=== PATIENT | female | born 1985 | race Caucasian/White ===

== ENCOUNTER 2016-04-14 17:19 | Emergency (ER) | payer MEDICARE ==
[~2016-04-14] VITALS: Ht 154.9 cm; Wt 82.8 kg
[~2016-04-14 17:19] MED LIST: ABILIFY10 MG PO; ABILIFY20 MG PO; CLARITIN10 MG PO; COLACE250 MG PO; EFFEXOR-XR150 MG PO; FLONASE NASAL50 MCG NS; LEVAQUIN500 MG PO; LORATADINE10 M2 PO; LUTERA 0.02 MG-1 TAB PO; MAPAP500 M4 PO; PEPCID20 MG PO; PREDNISONE20 MG PO; PROAIR HFA0.09 MG/Ac IH; PROZAC20 MG PO; Q-TUSSIN100 MG/51 PO; QVAR HFA M40 MCG/ACT INH; QVAR HFA M80 MCG/ACT INH; RANITIDINE 150150 MG PO; RISPERDAL2 MG PO; TERBINAFINE HCL; TRAZODONE HYDR100 MG PO; TRAZODONE50 M2 PO; ZANTAC150 MG PO; ZOFRAN ODT4 MG PO; [UNRECOGNIZED DRUG - OTHER] OP; [UNRECOGNIZED DRUG - OTHER] PO
[2016-04-14 17:29] VITALS: BP 149/96
--- NOTE | 2016-04-14 17:41 | NUR ---
PT BIB CAREGIVER W/C/O LOWER ABDOMINAL PAIN THAT RADIATES INTO LOW BACK AND PRIVATE PAR SINCE THIS AM.PT STATES THAT IT'S MORE PAINFUL WHEN SHE BENDS FORWARD.DENIES N/V/D. HX ASTHMA, DEPRESSION, PSYCHOSIS, ULCERS.PT IS AAOX4.HOB ELEVATED.SAFETY PRECAUTION INSTITUTED,SIDERAILS UP.NEEDS ATTENDED.ALL MONITORS PLACED IN.MD AWARE OF PT'S CONDITION.
--- NOTE | 2016-04-14 17:50 | NUR ---
pt ambulated to the restroom.no acute distress noted at this time.
[2016-04-14] MEDS ORDERED: DAILY VITE1 TA1 PO (17:54)
--- NOTE | 2016-04-14 18:02 | NUR ---
dr vang at bedside.
[2016-04-14] MEDS ORDERED: MORPHINE SULFATE 2 MG/ML SYR IVP ONE (18:05)
--- NOTE | 2016-04-14 18:54 | NUR ---
PT IS SLEEPING AT THIS TIME.CAREGIVER AT BEDSIDE.NO ACUTE DISTRESS NOTED AT THIS TIME.WILL CONTINUE TO MONITOR PT.
--- NOTE | 2016-04-14 19:03 | NUR ---
DR BARNHART AT BEDSIDE
--- NOTE | 2016-04-14 19:16 | NUR ---
Patient discharged with v/s stable. Written and verbal after care instructions given and explained. Patient alert, oriented and verbalized understanding of instructions. Ambulatory with steady gait. All questions addressed prior to discharge. ID band removed. Patient advised to follow up with PMD. Rx of CIPRO given. Patient educated on indication of medication including possible reaction and side effects.ADVISED PT TO INCREASED FLUID INTAKE AND PT AGREED TO IT. Opportunity to ask questions provided and answered.
[2016-04-14 19:17] VITALS: BP 160/78
== END 2016-04-14 19:17 | disposition home or self-care (01) ==
LOC: MED 17:19
DX: N39.0 Urinary tract infection, site not specified (principal); J45.909 Unspecified asthma, uncomplicated; K21.9 Gastro-esophageal reflux disease without esophagitis; F32.9 Major depressive disorder, single episode, unspecified; Z79.899 Other long term (current) drug therapy; Z88.2 Allergy status to sulfonamides; Z91.013 Allergy to seafood
CPT/HCPCS: 36415; 80053; 81001; 81025; 82150; 83690; 84703; 85025; 87086; 96374; 99284; J2270

== ENCOUNTER 2016-07-17 17:00 | Emergency (ER) | payer MEDICARE ==
[~2016-07-17] VITALS: Ht 154.9 cm; Wt 81.2 kg
[~2016-07-17 17:00] MED LIST changes: +DAILY VITE1 TA1 PO
[2016-07-17 17:39] VITALS: BP 126/68
--- NOTE | 2016-07-17 18:57 | NUR ---
PATIENT TO BED 7 AT THIS TIME.
--- NOTE | 2016-07-17 19:41 | NUR ---
30/F PRESENT TO ER C/O ABDOMINAL PAIN RADIATING TO BACK X 1 WK SHARP IN NATURE, PT HAS NAUSEA DENIES V/D, DENIES DYSURIA--LAST BM TODAY. PAIN 9/10 SHARP RADIATING TO BACK. ERMD NOTIFIED OF PATIENT STATUS.
--- NOTE | 2016-07-17 20:20 | NUR ---
Patient being evaluated by physician at bedside.
[2016-07-17 21:31] VITALS: BP 122/68
--- NOTE | 2016-07-17 21:31 | NUR ---
Patient discharged with v/s stable. Written and verbal after care instructions given and explained. Patient alert, oriented and verbalized understanding of instructions. Ambulatory with steady gait. All questions addressed prior to discharge. ID band removed. Patient advised to follow up with PMD. Rx of MILK OF MAGNESIA given. Patient educated on indication of medication including possible reaction and side effects. Opportunity to ask questions provided and answered.
== END 2016-07-17 21:31 | disposition home or self-care (01) ==
LOC: MED 17:00
DX: K59.00 Constipation, unspecified (principal); R03.0 Elevated blood-pressure reading, without diagnosis of hypertension; J45.909 Unspecified asthma, uncomplicated; K21.9 Gastro-esophageal reflux disease without esophagitis; F79 Unspecified intellectual disabilities; F31.9 Bipolar disorder, unspecified; Z88.2 Allergy status to sulfonamides; Z91.013 Allergy to seafood; Z79.899 Other long term (current) drug therapy
CPT/HCPCS: 36415; 76705; 80053; 81001; 83690; 84703; 85025; 87086; 99285; Q0092

== ENCOUNTER 2018-04-28 10:25 | Emergency (ER) | payer BC, MEDICARE ==
[~2018-04-28] VITALS: Ht 162.6 cm; Wt 81.6 kg
[~2018-04-28 10:25] MED LIST changes: -ABILIFY10 MG PO; -ABILIFY20 MG PO; +ACET-1082 PO; +ALBU-136 IH; +ARIP20TA1 PO; +BECL0.0458 INH; -CLARITIN10 MG PO; -COLACE250 MG PO; -DAILY VITE1 TA1 PO; -EFFEXOR-XR150 MG PO; -FLONASE NASAL50 MCG NS; -LEVAQUIN500 MG PO; +LORA10OD44 PO; -LORATADINE10 M2 PO; -LUTERA 0.02 MG-1 TAB PO; -MAPAP500 M4 PO; +MULT-139 PO; -PEPCID20 MG PO; -PREDNISONE20 MG PO; -PROAIR HFA0.09 MG/Ac IH; -PROZAC20 MG PO; -Q-TUSSIN100 MG/51 PO; -QVAR HFA M40 MCG/ACT INH; -QVAR HFA M80 MCG/ACT INH; +RANI-451 PO; -RANITIDINE 150150 MG PO; +RISP2TAB PO; -RISPERDAL2 MG PO; -TERBINAFINE HCL; -TRAZODONE HYDR100 MG PO; -TRAZODONE50 M2 PO; +VENL150C1 PO; -ZANTAC150 MG PO; -ZOFRAN ODT4 MG PO; +[UNRECOGNIZED DRUG - CODE] PO; -[UNRECOGNIZED DRUG - OTHER] OP; -[UNRECOGNIZED DRUG - OTHER] PO
--- NOTE | 2018-04-28 10:29 | NUR ---
PT AMBULATES TO BED 12
[2018-04-28 10:31] VITALS: BP 136/91
--- NOTE | 2018-04-28 10:36 | NUR ---
32Y/F BIB FAMILY WITH C/O LEFT WRIST PAIN X 3 DAYS, - SWELLING, - DEFORMITY, - BRUSING, < 3 CAP REILL, -CMS, -ROM. PT STATES SHE WAS AT WORK AND HURT HERSELF WITH THE WOOD, WHILE PULLING IT APART. 8/10 PAIN SCALE. PT IS AAOX4, VSS AT THIS TIME, BED DOWN, BED RAIL UP X 1, ER MD AWARE AND NOTIFIED OF PT STATUS.
--- NOTE | 2018-04-28 12:05 | NUR ---
Patient being evaluated by physician at bedside.
--- NOTE | 2018-04-28 12:10 | NUR ---
PT IS BEING SENT HOME WITH SLING AND VELCRO WRIST BAND
--- NOTE | 2018-04-28 12:18 | NUR ---
Left velcro wrist splint applied with left sling
[2018-04-28 12:19] VITALS: BP 133/89
--- NOTE | 2018-04-28 12:19 | NUR ---
Patient discharged with v/s stable. Written and verbal after care instructions given and explained. Patient verbalized understanding. Ambulatory with steady gait. All questions addressed prior to discharge. Advised to follow up with PMD.
== END 2018-04-28 12:19 | disposition home or self-care (01) ==
LOC: MED 10:25
DX: S63.502A Unspecified sprain of left wrist, initial encounter (principal); J45.909 Unspecified asthma, uncomplicated; Z88.2 Allergy status to sulfonamides; Z91.013 Allergy to seafood; Z79.899 Other long term (current) drug therapy; X50.9XXA Other and unspecified overexertion or strenuous movements or postures, initial encounter; Y93.89 Activity, other specified; Y92.89 Other specified places as the place of occurrence of the external cause; Y99.8 Other external cause status
CPT/HCPCS: 29125; 73110; 99283; Q0092

== ENCOUNTER 2018-06-14 10:22 | Emergency (ER) | payer BC ==
[~2018-06-14] VITALS: Ht 154.9 cm; Wt 80.7 kg
[2018-06-14 10:59] VITALS: BP 123/75
--- NOTE | 2018-06-14 11:03 | NUR ---
PT AMBULATED TO ER BED 10
--- NOTE | 2018-06-14 11:41 | NUR ---
BIB CAREGIVER C/O RIGHT KNEE PAIN/SWELLING X YESTERDAY, LIGHT BLUE BRUISING NOTED. PT STS "I LOST BALANCE AND FELL DOWN THE STAIRS." NO LOC. PT WITH MILD INTELLECTUAL DISABILITY, AT BASELINE PER CAREGIVER. A&OX4, BREATHING EVEN AND UNLABORED. SKIN WARM, PINK, AND DRY.
--- NOTE | 2018-06-14 11:53 | NUR ---
DR. LINDQUIST AT BEDSIDE TO EVALUATE PT.
[2018-06-14] MEDS ORDERED: IBUPROFEN 400 MG TAB PO ONE (12:05)
--- NOTE | 2018-06-14 12:24 | NUR ---
X-RAY AT BEDSIDE
--- NOTE | 2018-06-14 13:13 | NUR ---
APPLIED KNEE IMMOBILIZER TO RT. KNEE
[2018-06-14 13:30] VITALS: BP 118/74
--- NOTE | 2018-06-14 13:33 | NUR ---
Patient discharged with v/s stable. Written and verbal after care instructions given and explained. Patient alert, oriented and PT AND CAREGIVER verbalized understanding of instructions. Ambulatory with CRUTCHES. All questions addressed prior to discharge. ID band removed. Patient advised to follow up with PMD. Rx of MOTRIN given. Patient AND CAREGIVER educated on indication of medication including possible reaction and side effects. Opportunity to ask questions provided and answered.
== END 2018-06-14 13:33 | disposition home or self-care (01) ==
LOC: MED 10:22
DX: S83.91XA Sprain of unspecified site of right knee, initial encounter (principal); J45.909 Unspecified asthma, uncomplicated; Z79.899 Other long term (current) drug therapy; Z88.2 Allergy status to sulfonamides; Z91.018 Allergy to other foods; X50.1XXA Overexertion from prolonged static or awkward postures, initial encounter; Y93.01 Activity, walking, marching and hiking; Y92.89 Other specified places as the place of occurrence of the external cause; Y99.8 Other external cause status
CPT/HCPCS: 29505; 73562; 81025; 99283; Q0092

== ENCOUNTER 2018-08-15 11:33 | Emergency (ER) | payer BC ==
[~2018-08-15] VITALS: Ht 152.4 cm; Wt 80.9 kg
[2018-08-15 11:44] VITALS: BP 130/87
--- NOTE | 2018-08-15 11:51 | NUR ---
PT AMBULATED TO ER BED 2
--- NOTE | 2018-08-15 11:54 | NUR ---
DR. FARMER BEDSIDE EVALUATING PT
--- NOTE | 2018-08-15 12:03 | NUR ---
C/O SOB X4 DAYS. PT REPORTS BEING SEEN AT [facility] ON 08/11 FOR SIMILAR SYMPTOMS. SHE WAS GIVEN PREDNISONE AND SENT HOME. PT HAS FINISHED MEDICATION AND HAS BEEN USING THE INHALERS THAT WERE PRESCRIBED TO HER (NAME UNKNOWN) AND REPORTS THAT SYMPTOMS HAVE NOT IMPROVED. DENIES CP, FEVER, OR N/V/D. SPO2 100% RA, BREATHING UNLABORED, BREATH SOUNDS CLEAR AND EQUAL BILAT, NO ACCESORY MUSCLE USE NOTED. SKIN WARM/DRY/NFE. BED IN LOW POSITION, SIDE RAIL UP X1. PT PLACED ON BEDSIDE CHECKER PRODUCT DESIGN. CAREGIVER AT BEDSIDE.
[2018-08-15] MEDS ORDERED: ALBUTEROL SULFATE/IPRATROPIU 3 ML SOL IH ONE (12:05)
[2018-08-15] MEDS ORDERED: methylPREDNISolone SS 125 MG in WATER STERILE 2 ML IM ONE (13:10)
[2018-08-15 13:52] VITALS: BP 130/87
--- NOTE | 2018-08-15 13:53 | NUR ---
Patient discharged with v/s stable. Written and verbal after care instructions given and explained. Patient alert, oriented and verbalized understanding of instructions. Ambulatory with steady gait. All questions addressed prior to discharge. ID band removed. Patient advised to follow up with PMD. Rx of ALBUTEROL & PREDNISONE given. Patient educated on indication of medication including possible reaction and side effects. Opportunity to ask questions provided and answered.
== END 2018-08-15 11:35 | disposition home or self-care (01) ==
LOC: MED 11:33
DX: J45.901 Unspecified asthma with (acute) exacerbation (principal); Z79.899 Other long term (current) drug therapy; Z88.2 Allergy status to sulfonamides; Z91.013 Allergy to seafood; Z91.011 Allergy to milk products
CPT/HCPCS: 71045; 94640; 96372; 99283; J2930; J7620; Q0092

== ENCOUNTER 2018-11-14 19:02 | Emergency (ER) | payer BC ==
[~2018-11-14] VITALS: Ht 154.9 cm; Wt 82.6 kg
[~2018-11-14 19:02] MED LIST changes: -RANI-451 PO; +[UNRECOGNIZED DRUG - CODE] PO
[2018-11-14 19:26] VITALS: BP 133/89
[2018-11-14] MEDS ORDERED: ACETAMINOPHEN 325 MG TAB PO ONE (22:40)
[2018-11-14 23:00] VITALS: BP 133/89
== END 2018-11-14 23:00 | disposition home or self-care (01) ==
LOC: MED 19:02
DX: R51 Headache (principal); R42 Dizziness and giddiness; M54.5 Low back pain; J45.909 Unspecified asthma, uncomplicated; Z88.2 Allergy status to sulfonamides; Z91.013 Allergy to seafood; Z79.899 Other long term (current) drug therapy
CPT/HCPCS: 81002; 81025; 99282

== ENCOUNTER 2018-12-11 22:08 | Emergency (ER) | payer BC ==
[~2018-12-11] VITALS: Ht 154.9 cm; Wt 83.2 kg
[2018-12-11 22:14] VITALS: BP 132/64
--- NOTE | 2018-12-11 22:21 | NUR ---
PT AMBULATED TO LOBBY
--- NOTE | 2018-12-11 23:50 | NUR ---
PT AMBULATED TO BED 8
--- NOTE | 2018-12-11 23:57 | NUR ---
Dr. Mann examining patient.
--- NOTE | 2018-12-11 23:58 | NUR ---
PT BIB SELF C/O RT LEG/KNEE PAIN X1 WEEK S/P MECH FALL. NO BRUISING, REDNESS OR SWELLING NOTED TO AFFECTED AREA. PT AMBULATES EVEN STEADY GAIT. PT SITTING IN BED CALM AND AWAKE. PT STATES [place] AND WALKED HERE TO ER TODAY.
[2018-12-12] MEDS ORDERED: IBUPROFEN 800 MG TAB PO ONE
--- NOTE | 2018-12-12 | NUR ---
PT R KNEE WRAPPED WITH FABIÁN WRAP. +CSM
--- NOTE | 2018-12-12 00:30 | NUR ---
Patient discharged with v/s stable. Written and verbal after care instructions given and explained. Patient alert, oriented and verbalized understanding of instructions. Ambulatory with to home. All questions addressed prior to discharge. ID band removed. Patient advised to follow up with PMD. Rx of 800 MG MOTRIN given. Patient educated on indication of medication including possible reaction and side effects. Opportunity to ask questions provided and answered.
[2018-12-12 00:31] VITALS: BP 132/64
== END 2018-12-12 00:30 | disposition home or self-care (01) ==
LOC: MED 22:08
DX: S83.91XA Sprain of unspecified site of right knee, initial encounter (principal); J45.909 Unspecified asthma, uncomplicated; Z79.899 Other long term (current) drug therapy; Z79.51 Long term (current) use of inhaled steroids; Z88.2 Allergy status to sulfonamides; Z91.013 Allergy to seafood; Z91.011 Allergy to milk products; W18.39XA Other fall on same level, initial encounter; Y92.89 Other specified places as the place of occurrence of the external cause; Y99.8 Other external cause status
CPT/HCPCS: 99282

== ENCOUNTER 2019-01-28 20:10 | Emergency (ER) | payer BC ==
[~2019-01-28] VITALS: Ht 154.9 cm; Wt 74.8 kg
[2019-01-28 20:20] VITALS: BP 136/81
--- NOTE | 2019-01-28 21:53 | NUR ---
VAGINAL BLEEDING X5 DAYS. DENIES CHANCE OF . REPORTS DX UTI 5 DAYS AGO FROM [facility], ON CEPHALEXIN AT THIS TIME. REPORTS VOMITING X2 TODAY AND VAGINAL PAIN. DENEIS BURNING SENSATION WHEN URINATING. RATES PAIN 8/10 AND DESCRIBES IT PRESSURE AND STINING IN ABD. LOCATION OF PAIN IS ENTIRE ABD REGION. PT STATES SHES BEEN HAVING HEAVY BLEEDING AND BLOOD CLOTS FROM VAGINAL AREA. ALLERGIES: SULFA HX ASTHMA, DISABLED RX CEPHALEXIN, ALBUTEROL, SINGULAIR, QVAR, BANOPHEN, LORATADINE, LESSINA, APIPRAZOLE, EFFEXOR, TRAZODONE, RANITIDINE, STOOL SOFTENER.
--- NOTE | 2019-01-28 21:53 | NUR ---
PT AMBULATED TO BED 3
--- NOTE | 2019-01-29 00:50 | NUR ---
COLLECTED AND SENT BLOOD WORK AND URINE TO LAB.
[2019-01-29 01:11] LABS: BASOPHILS # (AUTO) 0.1 K/uL (0.00-0.22); BASOPHILS % (AUTO) 0.5 % (0.0-2.0); EOSINOPHILS % (AUTO) 8.6 % (0.0-4.0); HEMATOCRIT 41.2 % (36-48); HEMOGLOBIN 13.4 g/dL (12.0-16.0); LYMPHOCYTES # (AUTO) 2.6 K/uL (2.5-16.5); LYMPHOCYTES % (AUTO) 21.7 % (20.5-51.1); MEAN CORPUSCULAR HEMOGLOBIN 29 pg (27-31); MEAN CORPUSCULAR HGB CONC 33 g/dL (33-37); MEAN CORPUSCULAR VOLUME 88.9 fL (80-94); MONOCYTES # (AUTO) 0.5 K/uL (0.8-1.0); MONOCYTES % (AUTO) 4.3 % (1.7-9.3); NEUTROPHILS # (AUTO) 7.8 K/uL (1.8-7.7); NEUTROPHILS % (AUTO) 64.9 % (42.2-75.2); PLATELET COUNT (AUTO) 322 K/uL (140-450); RED BLOOD CELL COUNT(AUTO) 4.63 MIL/uL (4.20-5.40); RED CELL DISTRIBUTION WIDTH 13.7 % (11.6-13.7)
[2019-01-29 01:14] LABS: APPEARANCE,URINE CLEAR (CLEAR); BILIRUBIN,URINE NEGATIVE (NEGATIVE); BLOOD, URINE TRACE-I (NEGATIVE); COLOR,URINE YELLOW (YELLOW); LEUKOCYTE ESTERASE ,URINE NEGATIVE (NEGATIVE); NITRITE, URINE NEGATIVE (NEGATIVE); PH,URINE 6.5 (5.0-9.0); UGLUCOSE NEGATIVE (NEGATIVE)
[2019-01-29 01:35] LABS: ANION GAP 11.4 (8-16); CARBON DIOXIDE 26.2 mmol/L (21-32); CREATININE 0.8 mg/dL (0.6-1.3); POTASSIUM 3.6 mmol/L (3.5-5.1)
[2019-01-29] MEDS ORDERED: ONDANSETRON 4 MG/2 ML VIAL IVP ONE (01:35)
[2019-01-29 04:52] VITALS: BP 136/81
--- NOTE | 2019-01-29 04:52 | NUR ---
TALKED TO PRABHJOT FROM THE [facility] FOR TRANSPORTATION ARRANGEMENTS AND SHE SAID TRASNPORTATION WILL BE HERE IN 1HR.
== END 2019-01-29 04:52 | disposition home or self-care (01) ==
LOC: MED 20:10
DX: R10.13 Epigastric pain (principal); R19.7 Diarrhea, unspecified; N93.9 Abnormal uterine and vaginal bleeding, unspecified; J45.909 Unspecified asthma, uncomplicated
CPT/HCPCS: 36415; 80048; 81003; 81025; 85025; 87086; 96374; 99283; J2405

== ENCOUNTER 2019-05-05 19:42 | Emergency (ER) | payer BC ==
[~2019-05-05] VITALS: Ht 154.9 cm; Wt 63.5 kg
[~2019-05-05 19:42] MED LIST changes: +RANI-553 PO; -[UNRECOGNIZED DRUG - CODE] PO
[2019-05-05 19:52] VITALS: BP 145/95
[2019-05-05 21:51] VITALS: BP 135/81
== END 2019-05-05 21:14 | disposition home or self-care (01) ==
LOC: MED 19:42
DX: M25.521 Pain in right elbow (principal); J45.909 Unspecified asthma, uncomplicated; Z79.899 Other long term (current) drug therapy; Z88.2 Allergy status to sulfonamides; Z91.013 Allergy to seafood
CPT/HCPCS: 73080; 99283

== ENCOUNTER 2022-05-03 09:43 | Emergency (ER) | payer BC ==
[~2022-05-03] VITALS: Ht 154.9 cm; Wt 85.7 kg
[~2022-05-03 09:43] MED LIST changes: +ALBU-118 IH; -ALBU-136 IH; -MULT-139 PO; +MULT-140 PO; -VENL150C1 PO; +VENL150C4 PO
[2022-05-03 09:49] VITALS: BP 119/81
--- NOTE | 2022-05-03 09:54 | NUR ---
AMBULATED TO BATHROOM WITH STEADY GAIT
--- NOTE | 2022-05-03 09:58 | NUR ---
36 Y/O FEMALE BIB CAREGIVER C/O INTERMITTENT UPPER ABD PAIN RADIATING TO THE RIBS X1 MONTH. STATES 1 EPISODE OF [place] YESTERDAY, DENIES ANY BLOOD OR DIARRHEA. DENIES ANY VOMITING TODAY. DENIES ANY MEDICATION FOR PAIN. ALLERGY: SULFA PMH: GERD, ASTHMA
--- NOTE | 2022-05-03 10:52 | NUR ---
PT AMBULATED TO ER BED 6 WITH CAREGIVER
--- NOTE | 2022-05-03 11:05 | NUR ---
36YO FEMALE PT BIB CAREGIVER C/O ABD PAIN AND N/V-blood X1DAY. REPORTS SUDDEN ONSET. ABD NON TENDER OR DISTENDED. DENIES TAKING MEDICATION, DIARRHEA, CHEST PAIN, FEVER, CHILLS OR CHANGE IN DIET. PT AAOX4, HOB POSITIONED PER COMFORT. HX: ASTHMA, GERD ALLERGIES: SULFA
[2022-05-03 11:20] LABS: APPEARANCE,URINE CLEAR (CLEAR); BILIRUBIN,URINE NEGATIVE (NEGATIVE); BLOOD, URINE 3+ (NEGATIVE); COLOR,URINE YELLOW (YELLOW); LEUKOCYTE ESTERASE ,URINE NEGATIVE (NEGATIVE); NITRITE, URINE NEGATIVE (NEGATIVE); UGLUCOSE NEGATIVE (NEGATIVE)
[2022-05-03 11:22] LABS: BASOPHILS % (AUTO) 0.4 % (0.0-2.0); EOSINOPHILS % (AUTO) 0.3 % (0.0-4.0); HEMATOCRIT 40.8 % (36-48); HEMOGLOBIN 13.7 g/dL (12.0-16.0); LYMPHOCYTES # (AUTO) 2.9 K/uL (2.5-16.5); LYMPHOCYTES % (AUTO) 28.1 % (20.5-51.1); MEAN CORPUSCULAR HEMOGLOBIN 30 pg (27-31); MEAN CORPUSCULAR HGB CONC 34 g/dL (33-37); MEAN CORPUSCULAR VOLUME 88.6 fL (80-94); MONOCYTES # (AUTO) 0.5 K/uL (0.8-1.0); MONOCYTES % (AUTO) 4.3 % (1.7-9.3); NEUTROPHILS % (AUTO) 66.9 % (42.2-75.2); PLATELET COUNT (AUTO) 299 K/uL (140-450); RED BLOOD CELL COUNT(AUTO) 4.61 MIL/uL (4.20-5.40); RED CELL DISTRIBUTION WIDTH 13.8 % (11.6-13.7); WHITE BLOOD COUNT (AUTO) 10.4 K/uL (4.8-10.8)
--- NOTE | 2022-05-03 11:28 | NUR ---
US AT BEDSIDE
[2022-05-03 11:35] LABS: RBC,URINE 11-20 (MOD) /HPF (0-5)
[2022-05-03 12:01] LABS: ALBUMIN 3.9 g/dL (3.4-5.0); ANION GAP 11.7 (8-16); CARBON DIOXIDE 27.2 mmol/L (21-32); CREATININE 0.9 mg/dL (0.6-1.3); POTASSIUM 3.9 mmol/L (3.5-5.1); TOTAL BILIRUBIN 0.3 mg/dL (0.0-1.0)
[2022-05-03 12:19] VITALS: BP 126/74
--- NOTE | 2022-05-03 12:19 | NUR ---
PT TAKEN TO CT VIA LUDWIG
--- NOTE | 2022-05-03 12:28 | NUR ---
PT BROUGHT BACK VIA LUDWIG
--- NOTE | 2022-05-03 13:23 | NUR ---
Patient discharged with v/s stable. Written and verbal after care instructions FOR ABD PAIN given and explained. Patient verbalized understanding. Ambulatory with by caregiver. All questions addressed prior to discharge. Advised to follow up with PMD.
--- NOTE | 2022-05-03 13:25 | NUR ---
The patient's care was reviewed and supervised by Minerva Medel RN.
[2022-05-03] MEDS ORDERED: CIPR500T4 PO (14:43)
== END 2022-05-03 13:23 | disposition home or self-care (01) ==
LOC: MED 09:43
DX: K29.70 Gastritis, unspecified, without bleeding (principal); N39.0 Urinary tract infection, site not specified; J45.909 Unspecified asthma, uncomplicated; K21.9 Gastro-esophageal reflux disease without esophagitis; Z88.2 Allergy status to sulfonamides; Z91.013 Allergy to seafood; Z79.899 Other long term (current) drug therapy
CPT/HCPCS: 36415; 74176; 76705; 80053; 81001; 81025; 83690; 85025; 87086; 99284; Q0092